=== PATIENT | female | born 1965 | race Caucasian/White ===

== ENCOUNTER → 2020-11-16 14:58 | Outpatient (REF) | payer OTHER, SELFPAY | LOC: ANHLAB 14:58 | PROVIDERS: PCP Internal Medicine; Visit Provider Nurse Practitioner | DX: L98.9 Disorder of the skin and subcutaneous tissue, unspecified (principal) | CPT/HCPCS: 88305; 88342 ==

== ENCOUNTER 2024-02-29 16:41 | Emergency (ER) | payer OTHER, SELFPAY ==
--- NOTE | 2024-02-29 16:49 | ED.FEMALEGU ---
HPI - Female Genitourinary General Chief complaint: Urogenital-Female Stated complaint: uti symptoms Time Seen by Provider: 02/29/24 16:49 Source: patient, RN notes reviewed and old records reviewed Mode of arrival: ambulatory Limitations: no limitations History of Present Illness HPI Narrative: 58-year-old female presents to the [facility] with complaints of urgency, burning, feeling in of not being able to empty her bladder since this morning. No treatment prior to arrival Denies any back pain or abdominal pain. No nausea vomiting or diarrhea. Denies fevers. Onset (ago): hour(s) Patient : No Related Data Home Medications Medication Instructions Recorded Confirmed multivitamin (Daily Multi-Vitamin 1 tablet PO DAILY 09/28/19 02/29/24 tablet) Allergies Allergy/AdvReac Type Severity Reaction Status Date / Time Penicillins Allergy Unknown Chest Pain Verified 02/29/24 16:53 Review of Systems Review of Systems: All systems reviewed & are unremarkable except as noted in HPI and below Constitutional: Constitutional: Reports no additional constitutional complaints Eyes: Eyes: Reports no additional eye complaints ENT: Reports system reviewed and no additional complaints, except as documented Cardiovascular: Cardiovascular: Reports no additional cardiovascular complaints, Denies chest pain and Denies dyspnea Respiratory: Respiratory: Reports no additional respiratory complaints, Denies chest congestion, Denies cough and Denies dyspnea Gastrointestinal: Gastrointestinal: Reports no additional gastrointestinal complaints, Denies abdominal pain, Denies nausea and Denies vomiting Genitourinary: Genitourinary: Reports as per HPI Musculoskeletal: Musculoskeletal: Reports no additional musculoskeletal complaints Integumentary/Breasts: Skin/Breast: Reports system reviewed and no additional complaints, except as docu Neurologic: Reports system reviewed and no additional complaints, except as documented Psychiatric: Psychiatric: Reports no additional psychiatric complaints Allergic/Immunologic: Allergic/Immunologic: Reports no additional allergic/immunologic complaints [facility] Past Medical History Medical History Brain tumor Edema of both feet Venous insufficiency Surgical History Surgical History H/O section History of tubal ligation S/P brain surgery Family History Family History Grandparent Carcinoma of colon Sibling Family history of malignant neoplasm of breast in first degree relative Family history of malignant neoplasm of thyroid Family history of thyroid disease Family history of malignant neoplasm Mother Family history of cataracts Father Family history of atrial fibrillation Social History Social History Smoking status: Never smoker Second hand tobacco smoke exposure: No Alcohol intake: current Substance use: never Do You Feel Safe in your Home?: Yes Lack of Transportation: No Lack of Food: Never True Current Housing: I Have Housing Concerned About Future Housing: No Difficulty Paying Gas/Electric Bills: No Difficulty Paying for Meds: No Currently Unemployed: No Education: Associate Degree Difficulty w/ Childcare or Family Care: No Living arrangements: with family 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 There is no relevant family history pertinent to the patient complaint. Exam Const: General: cooperative, healthy appearing, comfortable, no acute distress, well developed, alert and well nourished Nutritional Appearance: well nourished
[2024-02-29 16:50] VITALS: BP 135/80; PULSE 73; RESP 18; TEMP 37.2; O2SAT 100
== END 2024-02-29 17:06 | disposition home or self-care (01) ==
PROVIDERS: Emergency Provider Nurse Practitioner
DX: N39.0 Urinary tract infection, site not specified (principal); B96.20 Unspecified Escherichia coli [E. coli] as the cause of diseases classified elsewhere
CPT/HCPCS: 81003; 87077; 87086; 87088; 87186; 99213; G0463

== ENCOUNTER 2024-03-17 07:01 | Day surgery (SDC) | payer OTHER, SELFPAY ==
[2024-02-25 13:03] VITALS: BMI 27.0
--- NOTE | 2024-03-17 07:26 | P.PNAN_ITS ---
Anes - Initial Pre Proc Eval Procedure: Operation Date: 03/17/24 09:00 Proposed Procedures p Screening Colonoscopy - Antoni Giron MD Date/Time: 03/17/24 07:26 Surgeon: Antoni Giron MD Pre Op Diagnosis: Neoplasm screening Patient Data Age: 58 Gender: F Height: 1.73 m Weight: 77.3 kg Allergies Allergy/AdvReac Type Severity Reaction Status Date / Time Penicillins Allergy Unknown Chest Pain Verified 03/17/24 07:41 Home Medications Medication Instructions Recorded Confirmed Type multivitamin (Daily Multi-Vitamin 1 tablet PO DAILY 09/28/19 03/17/24 History tablet) Patient hx anesthesia problems: none Family hx anesthesia problems: none Results Review: All pre-operative results and documents have been reviewed as part of the pre- operative evaluation. 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 but asympotmatic Venous insufficiency Surgical History Surgical History (Updated 03/17/24 @ 08:49 by Vic Rainey DO) H/O section History of tubal ligation S/P brain surgery meningioma removal Family History Family History Grandparent Carcinoma of colon Sibling Family history of malignant neoplasm of breast in first degree relative Family history of malignant neoplasm of thyroid Family history of thyroid disease Family history of malignant neoplasm Mother Family history of cataracts Father Family history of atrial fibrillation Social History Social History Smoking status: Never smoker Second hand tobacco smoke exposure: No Alcohol intake: current Alcohol use details: 0-3 per week Substance use: never Substance use type: does not use Do You Feel Safe in your Home?: Yes Lack of Transportation: No Lack of Food: Never True Current Housing: I Have Housing Concerned About Future Housing: No Difficulty Paying Gas/Electric Bills: No Difficulty Paying for Meds: No Currently Unemployed: No Education: Associate Degree Difficulty w/ Childcare or Family Care: No Living arrangements: with family 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 Informed Consent: The patient's anesthetic plan and its attendant risks and benefits were discussed with the patient/family/POA. Questions were solicited and answers provided to the satisfaction of the patient/family/POA.
[2024-03-17 08:02] VITALS: BP 115/83; PULSE 64; RESP 16; TEMP 37.1; O2SAT 100; BMI 25.7
[2024-03-17] MEDS: LACTATED RINGERS 1,000 ML 150 ML IV CONT (08:11)
--- NOTE | 2024-03-17 08:39 | PM.HPGS ---
History of Present Illness History of Present Illness Consent: Risks, benefits, and alternatives have been discussed and questions answered. Patient agrees to proceed with procedure. Chief complaint: Neoplasm screening Narrative: Mera Parker is a 58 year old female presents for screening colonoscopy. Patient's current weight appetite and bowel movements are normal. She denies abdominal pain. Patient has had no bleeding. Family history is noncontributory. Previous colonoscopy in 10 years ago was unremarkable. Review of Systems Review of Systems: All systems reviewed & are unremarkable except as noted in HPI and below PMFSH Past Medical History Medical History Brain tumor Edema of both feet Venous insufficiency Surgical History Surgical History H/O section History of tubal ligation S/P brain surgery Family History Family History Grandparent Carcinoma of colon Sibling Family history of malignant neoplasm of breast in first degree relative Family history of malignant neoplasm of thyroid Family history of thyroid disease Family history of malignant neoplasm Mother Family history of cataracts Father Family history of atrial fibrillation Social History Social History Smoking status: Never smoker Second hand tobacco smoke exposure: No Alcohol intake: current Alcohol use details: 0-3 per week Substance use: never Substance use type: does not use Do You Feel Safe in your Home?: Yes Lack of Transportation: No Lack of Food: Never True Current Housing: I Have Housing Concerned About Future Housing: No Difficulty Paying Gas/Electric Bills: No Difficulty Paying for Meds: No Currently Unemployed: No Education: Associate Degree Difficulty w/ Childcare or Family Care: No Living arrangements: with family 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 HEENT exam is unremarkable. Patient is anicteric. Lungs are clear to auscultation and to percussion the heart is without murmur or extra sounds. Abdomen bowel sounds are present soft nontender with no organomegaly. Digital external rectal exam normal. Assessment and Plan Assessment and plan (1) Screen for colon cancer: Code(s): Z12.11 - Encounter for screening for malignant neoplasm of colon Status: Acute Assessment and Plan: Patient presents today for colon cancer screening colonoscopy. Further recommendations may be given after endoscopy.
[2024-03-17 09:09] VITALS: BP 94/65; PULSE 68; RESP 14; O2SAT 99
[2024-03-17 09:19] VITALS: BP 112/66; PULSE 62; RESP 14; O2SAT 100
[2024-03-17 09:29] VITALS: BP 108/68; PULSE 52; RESP 16; O2SAT 100
--- NOTE | 2024-03-17 14:12 | WPDANESPN ---
Anes - Prog Note Post-Op Date/Time: 03/17/24 14:12 Cardiovascular status: normal Respiratory status: normal Airway patency: baseline Mental status: baseline Post-Op hydration status: normal Vital Signs: Last Vital Signs Temp 37.1 C 03/17/24 08:02 Pulse 52 L 03/17/24 09:29 Resp 16 03/17/24 09:29 BP 108/68 03/17/24 09:29 Pulse Ox 100 03/17/24 09:29 O2 Del Method Room Air 03/17/24 09:29 Pain Score (VAS): 0 I/O: Intake & Output 03/16/24 03/17/24 03/17/24 23:59 07:59 15:59 Intake Total 350 Balance 350 Post-procedural complaints: none Patient Feedback: Patient satisfied with anesthetic care. Other Findings: Patient vital signs back to baseline. Patient denies nausea and vomiting. Patient's pain under control. Patient OK for discharge.
== END 2024-03-17 09:32 | disposition home or self-care (01) ==
PROVIDERS: Visit Provider Internal Medicine Gastroenterology
PROC: 0DJD8ZZ Inspection of Lower Intestinal Tract, Via Natural or Artificial Opening Endoscopic (ICD-10-PCS; CPT 45378; principal; 2024-03-17 09:00)
DX: Z12.11 Encounter for screening for malignant neoplasm of colon (principal); K64.8 Other hemorrhoids
CPT/HCPCS: 45378